=== PATIENT | male | born 1990 | race African-American/Black ===

== ENCOUNTER 2022-01-25 05:53 | Emergency (ER) | payer OTHER ==
[~2022-01-25] VITALS: Ht 177.8 cm; Wt 100.0 kg
[2022-01-25] MEDS ORDERED: MAGNESIUM/ALUMINUM HYDROXIDE/SIMETHICONE 30ML UDC PO ONE (09:45)
[2022-01-25 10:43] LABS: BASOPHILS % 0.5 % (0.0-2.0); EOSINOPHILS % 0.8 % (0.0-5.0); HEMATOCRIT. 40.1 % (42.0-52.0); HEMOGLOBIN. 13.5 g/dL (14.0-18.0); LYMPHOCYTES % 28.6 % (20.0-50.0); MEAN CORPUSCULAR HEMOGLOBIN 31.8 pg (28.0-32.0); MEAN CORPUSCULAR VOLUME 94.3 fL (80.0-94.0); MEAN PLATELET VOLUME 7.4 fl (7.4-10.4); MONOCYTES % 7.7 % (2.0-8.0); NEUTROPHILS % 62.4 % (40.0-76.0); PLATELET 341 x1000/uL (130-400); RED BLOOD CELL COUNT 4.26 mill/uL (4.7-6.1); RED CELL DISTRIBUTION WIDTH 13.8 % (11.6-14.6)
[2022-01-25 10:54] LABS: CHLORIDE 107 mEq/L (98-107)
[2022-01-25 11:10] VITALS: BP 152/90
== END 2022-01-25 14:35 | disposition home or self-care (01) ==
LOC: ER 05:53
DX: R07.89 Other chest pain (principal); M79.18 Myalgia, other site; R51.9 Headache, unspecified
CPT/HCPCS: 36415; 71045; 80053; 83880; 84484; 85025; 93005; 99285

== ENCOUNTER 2023-10-25 15:55 | Emergency (ER) | payer MEDICAID, OTHER ==
[~2023-10-25] VITALS: Ht 177.8 cm; Wt 100.0 kg
[2023-10-25 16:11] VITALS: TEMP 98.7; O2SAT 96
[2023-10-25] MEDS ORDERED: ACETAMINOPHEN 325MG TABLET PO ONE (17:45)
[2023-10-25 20:35] VITALS: BP 163/94; PULSE 83; RESP 18
== END 2023-10-25 20:39 | disposition home or self-care (01) ==
LOC: ER 15:55
DX: S09.90XA Unspecified injury of head, initial encounter (principal); X58.XXXA Exposure to other specified factors, initial encounter; Y93.89 Activity, other specified; Y92.89 Other specified places as the place of occurrence of the external cause; Y99.8 Other external cause status
CPT/HCPCS: 99284

== ENCOUNTER 2023-11-26 02:10 | Emergency (ER) | payer BC, MEDICAID ==
[2023-11-26 02:23] VITALS: PULSE 101
[2023-11-26] MEDS ORDERED: IBUP-2029 MT (09:41)
== END 2023-11-26 03:34 | disposition left against medical advice (07) ==
LOC: ER 02:32
DX: M79.10 Myalgia, unspecified site (principal); Z53.21 Procedure and treatment not carried out due to patient leaving prior to being seen by health care provider

== ENCOUNTER 2023-11-26 03:50 | Emergency (ER) | payer BC ==
[~2023-11-26] VITALS: Ht 177.8 cm; Wt 100.0 kg
[2023-11-26 04:02] VITALS: O2SAT 98
[2023-11-26 09:17] LABS: BASOPHILS % 0.8 % (0.0-2.0); EOSINOPHILS % 0.8 % (0.0-5.0); HEMATOCRIT. 41.1 % (42.0-52.0); HEMOGLOBIN. 13.8 g/dL (14.0-18.0); LYMPHOCYTES % 23.3 % (20.0-50.0); MEAN CORPUSCULAR HEMOGLOBIN 32.1 pg (28.0-32.0); MEAN CORPUSCULAR HGB CONC 33.7 g/dL (31.0-37.0); MEAN CORPUSCULAR VOLUME 95.2 fL (80.0-94.0); MONOCYTES % 8.9 % (2.0-8.0); NEUTROPHILS % 66.2 % (40.0-76.0); PLATELET 372 x1000/uL (130-400); RED BLOOD CELL COUNT 4.31 mill/uL (4.7-6.1); RED CELL DISTRIBUTION WIDTH 13.6 % (11.6-14.6); WHITE BLOOD COUNT 8.8 x1000/uL (4.5-11.0)
[2023-11-26 09:31] LABS: CALCIUM 9.5 mg/dL (8.7-10.4); CARBON DIOXIDE 28 mEq/L (21-32); CHLORIDE 102 mEq/L (98-107); CREATININE 0.9 mg/dL (0.6-1.3); GLUCOSE 95 mg/dL (70-105); SODIUM 137 mEq/L (136-145); UREA NITROGEN BLOOD 15 mg/dL (9-23)
[2023-11-26 09:32] LABS: TROPONIN I HIGH SENSITIVITY < 4 ng/L (3.0-53)
[2023-11-26] MEDS ORDERED: IBUP-2029 MT (09:41)
[2023-11-26 10:13] VITALS: BP 139/86; PULSE 95; RESP 18; TEMP 97.4
== END 2023-11-26 10:15 | disposition home or self-care (01) ==
LOC: ER 04:29
DX: M79.10 Myalgia, unspecified site (principal); R05.9 Cough, unspecified; I10 Essential (primary) hypertension
CPT/HCPCS: 36415; 71046; 80048; 84484; 85025; 99284

== ENCOUNTER 2023-11-27 00:59 | Emergency (ER) | payer BC ==
[~2023-11-27] VITALS: Ht 177.8 cm; Wt 100.0 kg
[~2023-11-27 00:59] MED LIST: IBUP-2029 MT
[2023-11-27 01:02] VITALS: O2SAT 97
[2023-11-27 04:56] VITALS: BP 121/69; PULSE 78; RESP 14; TEMP 99
== END 2023-11-27 05:01 | disposition home or self-care (01) ==
LOC: ER 00:59
DX: M79.10 Myalgia, unspecified site (principal); I10 Essential (primary) hypertension; Z98.890 Other specified postprocedural states
CPT/HCPCS: 99281